=== PATIENT | male | born 1980 | race Caucasian/White ===

== ENCOUNTER 2017-02-06 20:47 | Emergency (ER) | payer SELFPAY ==
[2017-02-06] MEDS ORDERED: Ketorolac INJ* 60 MG/2 ML VIAL IM ONE (21:26)
--- NOTE | 2017-02-06 23:08 | ED ---
Lower Extremity - HPI Summary HPI Summary: Pt here w/ Rt hip pain since couple of days ago - was shifting himself on the couch when he developed acute sharp hip pain. "Feels like it's in the joint". Denies radiating pain into LE - no numbness, tingling, weakness and no change in bowel/bladder habits. No previous h/o back or hip issues. Does report a h/o Lt LE fractures requiring corrective surgery - may have compensated with Rt LE during this healing time. Has tried 400mg ibuprofen prior to arrival - minimal relief. - History of Current Complaint Chief Complaint: EDExtremityLower Stated Complaint: RT HIP PAIN Time Seen by Provider: 02/06/17 21:13 Hx Obtained From: Patient, Family/Fabric Cutter - sister Pain Intensity: 9 - Allergies/Home Medications Allergies/Adverse Reactions: Allergies Allergy/AdvReac Type Severity Reaction Status Date / Time Cefaclor [From Ceclor] Allergy Intermediate Hives Verified 12/02/13 18:49 Red Dye Allergy GI Upset Verified 02/06/17 20:55 PMH/Surg Hx/FS Hx/Imm Hx Previously Healthy: Yes Endocrine/Hematology History: Denies: Hx Anticoagulant Therapy, Hx Blood Disorders Cardiovascular History: Denies: Hx Hypertension GI History: Denies: Hx Gastroesophageal Reflux Disease, Hx Ulcer Musculoskeletal History: Reports: Hx of Fracture(s) - Lt LE - trauma w/ surgical repair Infectious Disease History: No Infectious Disease History: Denies: Traveled Outside the [place] in Last 30 Days - Family History Known Family History: Positive: None - Social History Occupation: Employed Full-time - factory work Lives: With Family Alcohol Use: None Hx Substance Use: No Substance Use Type: Reports: None Hx Tobacco Use: Yes Smoking Status (MU): Current Every Day Smoker Review of Systems Constitutional: Negative Negative: Fever, Chills, Fatigue Cardiovascular: Negative Negative: Chest Pain Respiratory: Negative Negative: Shortness Of Breath Gastrointestinal: Negative Negative: Abdominal Pain, Vomiting, Diarrhea, Nausea Positive: no symptoms reported. Negative: incontinence Musculoskeletal: Other - see HPI Skin: Negative Negative: Rash, Bruising Neurological: Negative Psychological: Normal All Other Systems Reviewed And Are Negative: Yes Physical Exam Triage Information Reviewed: Yes Vital Signs On Initial Exam: Initial Vitals Temp Pulse Resp BP Pulse Ox 97.6 F 98 16 137/92 99 02/06/17 20:57 02/06/17 20:57 02/06/17 20:57 02/06/17 20:57 02/06/17 20:57 Vital Signs Reviewed: Yes Appearance: Positive: Well-Appearing, Pain Distress - appears uncomfortable to sit, Thin Skin: Positive: Warm, Dry - no erythema, no ecchymosis over affected area Eyes: Positive: EOMI ENT: Positive: Hearing grossly normal Respiratory/Lung Sounds: Positive: Breath Sounds Present Cardiovascular: Positive: Pulses are Symmetrical in both Upper and Lower Extremities Musculoskeletal: Positive: Strength/ROM Intact, Pain @ - Rt SI and lateral hip are TTP Neurological: Positive: Normal, Sensory/Motor Intact Psychiatric: Positive: Normal - Lucas Coma Scale Coma Scale Total: 15 Diagnostics - Vital Signs Vital Signs Temp Pulse Resp BP Pulse Ox 02/06/17 22:16 98.4 F 87 16 142/80 99 02/06/17 20:57 97.6 F 98 16 137/92 99 - Laboratory Diagnostic Studies Comment: Lumbar XR: (wet read) mild degenerative changes of vertebral bodies - no acute fx, dislocation. Hip XR: (wet read) Rt SI joint w/ arthritis - no fx, no dislocation Lab Statement: Any lab studies that have been ordered have been reviewed, and results considered in the medical decision making process. Re-Evaluation - Re-Evaluation First Eval Change: Improved Lower Extremity Course/Dx - Diagnoses Provider Diagnoses: SI joint arthritis, Arthritis of lumbar spine Discharge - Discharge Plan Condition: Stable Disposition: HOME Prescriptions: Ibuprofen TAB* [Motrin TAB* 800 MG] 800 mg PO Q8HR PRN #45 tab PRN Reason: Pain Patient Education Materials: Sacroiliitis (ED), Arthralgia (ED) Referrals: [facility] [Outside] Additional Instructions: You may also try heat and salonpas patches over affected area Consider glucosamine and an anti-inflammatory diet/supplements such as fish oil , anti-oxidant rich foods, etc Gentle stretches to prevent stiffness Follow-up with PCP or free clinic *If you develop weakness, numbness or change in bowel/bladder habits, return to ED
[2017-02-06 23:58] VITALS: BP 148/78
--- NOTE | 2017-02-07 07:30 | RAD ---
INDICATION: Low back pain. COMPARISON: There are no prior studies available for comparison. TECHNIQUE: 5 views of the lumbar spine were obtained including lateral, oblique, AP and a coned-down lateral view of the lumbar sacral junction. FINDINGS: The vertebra are in normal alignment. No fracture is seen. There is mild disc space narrowing and endplate hypertrophic changes at the L1-L2 level consistent with mild degenerative disc disease. IMPRESSION: MILD DEGENERATIVE DISC DISEASE AT THE L1-L2 LEVEL.
--- NOTE | 2017-02-07 07:32 | RAD ---
INDICATION: Atraumatic right hip pain. COMPARISON: There are no prior studies available for comparison. TECHNIQUE: An AP view of the pelvis and frontal and lateral views of the right hip were obtained. FINDINGS: The bones are in normal alignment. No fracture is seen. Joint spaces appear maintained. IMPRESSION: NEGATIVE EXAM.
== END 2017-02-06 23:56 | disposition home or self-care (01) ==
LOC: ED 20:47
DX: M53.88 Other specified dorsopathies, sacral and sacrococcygeal region (principal); M46.96 Unspecified inflammatory spondylopathy, lumbar region; F17.200 Nicotine dependence, unspecified, uncomplicated
CPT/HCPCS: 72110; 96372; 99282; J1885